=== PATIENT | male | born 1935 | race Caucasian/White ===

== ENCOUNTER 2020-07-07 09:20 | Emergency (ER) | payer MEDICARE ==
[2020-07-07] MEDS: Sodium Chloride 0.9% 10 ML Syringe FLUSH PRN ×2 (09:45→10:20)
[2020-07-07 10:12] VITALS: PULSE 70
[2020-07-07] MEDS ORDERED: Labetalol 20 MG/4 ML Syringe IVPUSH ONE (10:12)
--- NOTE | 2020-07-07 10:29 | EDM.PDOC ---
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, told he had "bone on bone" and that he would need surgery when he could no longer tolerate the pain, BP inc'd at ortho and sent here pt reports that he has not been taking APAP for his DJD does get sharp pain in his great toes, feet examined and there is no evidence of gout or hallux valgus or deformity from DJD, wll preserved arches has pretib edema, has not taken diuretic labs on 06-22-20: gluc 109, B/cr 15/.088, BMP neg A1C 4.7 chol/trig/HDL/LDL 156/119/50/82 hgb 15.8, wbc 8.0, plt 177 PMH per clinic chart: htn, obesity, benign colon neoplasm, IGT, presbycusis R ear, generalized osteoarthritis, umb hrenia, teticular atrophy , PVD, mild , miod aortic regurg SH: smoked 1 ppd age 22 to 39 - Related Data Allergies Allergy/AdvReac Type Severity Reaction Status Date / Time No Known Allergies Allergy Verified 07/07/20 09:43 Home Meds: Home Meds Aspirin [Low Dose Aspirin EC] 81 mg PO DAILY 07/07/20 [History] Glucosam/Chond/Collagen/Hyalur [Glucosamine Chondroitin] 1 each PO DAILY 07/07/20 [History] Losartan Potassium [Cozaar] 100 mg PO DAILY 07/07/20 [History] Metoprolol Succinate 12.5 mg PO DAILY #15 tab.er.24h 07/07/20 [Rx] Past Medical History HEENT History: Reports: Other (See Below) Other HEENT History: presbycusis right ear, Cardiovascular History: Reports: Hypertension, Other (See Below) Other Cardiovascular History: FROM CLINIC- aortic stenosis, mild; mild aortic stenosis; peripheral vascular disease Musculoskeletal History: Reports: Osteoarthritis Social & Family History - Tobacco Use Tobacco Use Status *Q: Former Tobacco User Used Tobacco, but Quit: Yes Month/Year Tobacco Last Used: 1969 ED ROS GENERAL - Review of Systems Review Of Systems: See Below Constitutional: Reports: No Symptoms HEENT: Reports: No Symptoms Respiratory: Reports: No Symptoms Cardiovascular: Reports: No Symptoms Endocrine: Reports: No Symptoms GI/Abdominal: Reports: No Symptoms : Reports: No Symptoms Musculoskeletal: Reports: No Symptoms Skin: Reports: No Symptoms Neurological: Reports: No Symptoms Psychiatric: Reports: No Symptoms Hematologic/Lymphatic: Reports: No Symptoms Immunologic: Reports: No Symptoms ED EXAM, GENERAL - Physical Exam Exam: See Below Exam Limited By: No Limitations General Appearance: Alert, WD/WN, No Apparent Distress Nose: Normal Inspection Throat/Mouth: Normal Inspection, Normal Lips, Normal Teeth, Normal Voice, No Airway Compromise Head: Atraumatic, Normocephalic Neck: Normal Inspection, Supple, Non-Tender, Full Range of Motion. No: Lymphadenopathy (R), Lymphadenopathy (L) Respiratory/Chest: No Respiratory Distress, Lungs Clear, Other (barrel chested, fair AE, symmetric). No: Crackles, Rales, Rhonchi, Wheezing Cardiovascular: Other (harsh 2/6 JAMIN at LUSB to RUSB, quiet precordium) GI/Abdominal: Soft, Non-Tender, No Distention Back Exam: Normal Inspection, Full Range of Motion Extremities: Normal Inspection, Normal Range of Motion, Other (1-2+ pretib edema b/l, excellent arches, normal anatomy of toes and MTP, 1+ DP pulse b/l, red mottling dorsum R foot & toes c/w VSD) Neurological: Alert, Oriented, CN II-XII Intact, Normal Cognition, No Motor/Sensory Deficits Psychiatric: Normal Affect, Normal Mood Skin Exam: Warm, Dry, Intact, Normal Color, No Rash Lymphatic: No Adenopathy #1 Interpretation EKG Date: 07/07/20 Time: 09:25 Rhythm: NSR [place]: Normal P-Wave: Present QRS: Normal Comparison: NA - No Prior EKG (repolarization abnormalities c/w LV strain, no ischemia noted) Course - Vital Signs Last Recorded V/S: Last Vital Signs Temp 36.4 C 07/07/20 09:25 Pulse 70 07/07/20 09:25 Resp 17 07/07/20 10:45 BP 198/85 H 07/07/20 10:45 Pulse Ox 97 07/07/20 10:45 - Orders/Labs/Meds Orders: Active Orders 24 hr Category Date Time Status Sodium Chloride 0.9% [Saline Flush] Med 07/07/20 10:22 Active 10 ml FLUSH ASDIRECTED PRN Medication Orders Sodium Chloride (Sodium Chloride 0.9% 10 Ml Syringe) 10 ml FLUSH ASDIRECTED PRN PRN Reason: Keep Vein Open Last Admin: 07/07/20 10:20 Dose: 10 ml Documented by: Meds: Medications Generic Name Dose Route Start Last Admin Trade Name Freq PRN Reason Stop Dose Admin Sodium Chloride 10 ml 07/07/20 10:22 07/07/20 10:20 Sodium Chloride 0.9% 10 Ml Syringe FLUSH 10 ml ASDIRECTED PRN Administration Keep Vein Open Discontinued Medications Generic Name Dose Route Start Last Admin Trade Name Freq PRN Reason Stop Dose Admin Labetalol HCl 20 mg 07/07/20 10:12 07/07/20 10:18 Labetalol 20 Mg/4 Ml Syringe IVPUSH 07/07/20 10:13 20 mg ONETIME ONE Administration Protocol - Re-Assessments/Exams Free Text/Narrative Re-Assessment/Exam: 07/07/20 11:21 no labs here as done 2w ago EKG shows repolarization changes, suggesting that BB may be a consideration, suspect that is no longer mild last echo ~1.5y ago did respond well to labetalol in ED, altho BP dec'd it seemed acceptable BP here 237/95, 228/88, 215/87, 223/92 after labetalol BP 168/77, 184/176 HR did decrease to 56-58 (once was in upper 40s) pt is barrel chested, h/o 20 pack yr smoking, may have COPD has peripheral edema, restarting hctz may be an option as well altho prefer to make only one change (starting metoprolol) rather than two changes (starting metoprolol and HCTZ) [facility] was called, however his office says he is on vacation and out of [place] Departure - Departure Time of Disposition: 11:12 Disposition: Home, Self-Care 01 Condition: Good Clinical Impression: Hypertensive urgency, Aortic stenosis, Periorbital edema, Osteoarthritis of hip, Abnormal EKG Prescriptions: Metoprolol Succinate 12.5 mg PO DAILY #15 tab.er.24h Instructions: Managing Your Hypertension, Aortic Valve Stenosis Forms: ED Department Discharge Additional Instructions: Continue losartan 100 mg 1 tab daily. Add metoprolol 25 mg 1/2 tab daily. Monitor and record your blood pressure daily. For osteoarthritis, take acetaminophen 500 mg 2 tabs 2 times a day. See Dr Eddy in 1-2 weeks. Sepsis Event Note (ED) - Evaluation Sepsis Screening Result: No Definite Risk - Focused Exam Vital Signs: Vital Signs Temp Pulse Resp BP Pulse Ox 07/07/20 10:45 17 198/85 H 97 07/07/20 10:30 19 196/84 H 97 07/07/20 10:15 17 218/96 H 97 07/07/20 10:00 19 223/92 H 97 07/07/20 09:45 17 215/87 H 98 07/07/20 09:25 36.4 C 70 18 237/95 H 97 - My Orders Last 24 Hours: My Active Orders 07/07/20 10:22 Sodium Chloride 0.9% [Saline Flush] 10 ml FLUSH ASDIRECTED PRN - Assessment/Plan Last 24 Hours: My Active Orders 07/07/20 10:22 Sodium Chloride 0.9% [Saline Flush] 10 ml FLUSH ASDIRECTED PRN
[2020-07-07 11:55] VITALS: BP 204/92
== END 2020-07-07 11:30 | disposition home or self-care (01) ==
LOC: FB.ED 09:20
DX: I35.0 Nonrheumatic aortic (valve) stenosis (principal); R60.0 Localized edema; I16.0 Hypertensive urgency; I10 Essential (primary) hypertension; M16.0 Bilateral primary osteoarthritis of hip; Z79.899 Other long term (current) drug therapy; Z79.82 Long term (current) use of aspirin; R94.31 Abnormal electrocardiogram [ECG] [EKG]; Z72.0 Tobacco use
CPT/HCPCS: 96374; 99283; J3490

== ENCOUNTER 2023-05-07 00:10 | Emergency (ER) | payer BC, MEDICARE ==
[2023-05-07 00:37] LABS: BASOPHILS ABSOLUTE AUTO 0.1 x10-3/uL (0.0-0.3); BASOPHILS PERCENT AUTO 0.7 % (0.3-3.8); EOSINOPHILS ABSOLUTE AUTO 0.3 x10-3/uL (0.0-0.6); HEMATOCRIT 46.7 % (38.3-50.1); HEMOGLOBIN 16.1 g/dL (12.9-17.7); LYMPHOCYTES ABSOLUTE AUTO 1.6 x10-3/uL (0.5-4.5); MEAN CORPUSCULAR HEMOGLOBIN 33.8 pg (27.0-33.3); MEAN CORPUSCULAR HGB CONC 34.4 g/dL (28.7-35.3); MEAN CORPUSCULAR VOLUME 98.3 fL (80.8-98.7); MEAN PLATELET VOLUME 8.4 fL (6.7-11.0); MONOCYTES ABSOLUTE AUTO 0.5 x10-3/uL (0.0-1.2); MONOCYTES PERCENT AUTO 5.6 % (5.5-15.2); NEUTROPHILS ABSOLUTE AUTO 6.8 x10-3/uL (1.7-6.9); NEUTROPHILS PERCENT AUTO 73.7 % (40.3-71.8); PLATELET COUNT,PLT 181 x10(3)uL (117-477); RED BLOOD CELL COUNT 4.76 x10(6)uL (3.90-5.90); RED CELL DISTRIBUTION WIDTH 13.1 % (12.4-15.0); WHITE BLOOD CELL COUNT,WBC 9.2 x10-3/uL (3.2-10.1)
[2023-05-07 00:46] LABS: BLOOD UREA NITROGEN,BUN 34 mg/dL (7-18); BUN/CREATININE RATIO 24.3 (9-20); CARBON DIOXIDE,CO2 27 mmol/L (21-32); CHLORIDE,CL 105 mmol/L (100-110); CREATININE 1.4 mg/dL (0.70-1.30); ESTIMATED GFR 49 mL/min (>60); GLUCOSE RANDOM 118 mg/dL (80-116); POTASSIUM,K 3.8 mmol/L (3.5-5.3); SODIUM,NA 141 mmol/L (135-145)
[2023-05-07 00:52] LABS: ALANINE AMINOTRANSFERASE,ALT 26 U/L (12-36); ALBUMIN 3.5 g/dL (3.2-4.6); ALKALINE PHOSPHATASE 77 IU/L (56-112); ASPARTATE AMNIOTRANSFERASE,AST 20 IU/L (5-25); BILIRUBIN TOTAL 1.1 mg/dL (0.1-1.3); PROTEIN TOTAL,TP 7.1 g/dL (6.0-8.0)
[2023-05-07 00:56] LABS: C-REACTIVE PROTEIN 0.99 mg/dL (<0.50)
[2023-05-07 00:59] LABS: TROPONIN I 94.2 pg/mL (4.0-60.3)
[2023-05-07 01:34] LABS: INFLUENZA A NAA NEGATIVE (NEGATIVE); INFLUENZA B NAA NEGATIVE (NEGATIVE); RESPIRATORY SYNCYTIAL VIR NAA NEGATIVE (NEGATIVE)
[2023-05-07 01:35] LABS: CORONAVIRUS COVID-19 NAA NEGATIVE (NEGATIVE)
[2023-05-07] MEDS: Iopamidol 755 Mg/ML 100 ML Bottle IV SCH (01:43)
[2023-05-07] MEDS: Sodium Chloride 0.9% 1,000 ML IV SCH (01:49)
[2023-05-07] MEDS ORDERED: Heparin Sodium 5,000 Units/ML Vial IVPUSH ONE (02:32)
[2023-05-07] MEDS ORDERED: Heparin Sodium/0.45% NaCl 500 ML IV SCH (02:45)
[2023-05-07 02:47] LABS: PROTHROMBIN TIME 10.4 sec (9.0-11.1)
[2023-05-07 02:49] LABS: PTT,PARTIAL THROMBOPLSTIN TIME 26.1 SECONDS (24.4-33.2)
[2023-05-07] MEDS: Aspirin 81 MG Tab.Chew PO ONE (03:11)
[2023-05-07 03:34] LABS: BILIRUBIN,URINE NEGATIVE (NEGATIVE); GLUCOSE,URINE NORMAL (NORMAL); KETONES,URINE 15 mg/dL (NEGATIVE); LEUKOCYTE ESTERASE,URINE LARGE (NEGATIVE); NITRITE,URINE POSITIVE (NEGATIVE); OCCULT BLOOD,URINE MODERATE (NEGATIVE); PROTEIN,URINE 30 mg/dL (NEGATIVE); UROBILINOGEN,URINE NORMAL (NEGATIVE)
[2023-05-07 03:36] LABS: APPEARANCE,URINE CLOUDY (CLEAR); COLOR,URINE YELLOW (YELLOW)
[2023-05-07] MEDS: Aspirin 81 MG Tab.Chew ONE (03:36)
[2023-05-07 03:40] LABS: BACTERIA,URINE MANY (NS); SQUAMOUS EPITHELIAL CELLS,UR FEW (NS,R,O); WBC,URINE 50-75 (0-5)
[2023-05-07] MEDS: Heparin Sodium 5,000 Units/ML Vial IVPUSH ONE (03:45)
[2023-05-07] MEDS: Heparin Sodium/0.45% NaCl 25,000 UNITS/500 ML BAG IV SCH (03:47)
[2023-05-07 04:47] VITALS: BP 164/90; PULSE 74
== END 2023-05-07 04:33 ==
LOC: FB.ED 00:10
DX: I21.4 Non-ST elevation (NSTEMI) myocardial infarction (principal); R79.89 Other specified abnormal findings of blood chemistry; R79.82 Elevated C-reactive protein (CRP); K22.9 Disease of esophagus, unspecified; E86.0 Dehydration; I10 Essential (primary) hypertension; I25.2 Old myocardial infarction; Z79.82 Long term (current) use of aspirin; Z79.899 Other long term (current) drug therapy; Z87.891 Personal history of nicotine dependence
CPT/HCPCS: 0241U; 36415; 71275; 80053; 81001; 83690; 83735; 83880; 84484; 85025; 85379; 85610; 85730; 86140; 87086; 93005; 93010; 96361; 96365; 99285; A9270; J1644; J7030; Q9967